=== PATIENT | female | born 1985 | race American Indian/Alaskan Native ===

== ENCOUNTER 2018-06-15 23:03 | Inpatient (IN) | payer MEDICAID ==
[~2018-06-15] VITALS: Ht 170.2 cm; Wt 60.1 kg
[~2018-06-15 23:03] MED LIST: NOVLG SQ; ONDA4TAB6 PO; PANT-47 PO; PREN1TAB75 PO; SUCR1TAB PO
--- NOTE | 2018-06-15 23:05 | NUR ---
Jass liu in [facility] - 06/16/18 at 0600 by MAGGIE Levophed stopped.
[2018-06-15] MEDS ORDERED: normal saline 1000ML IV soln IVB ONE (23:30)
[2018-06-15] MEDS ORDERED: naloxone 2mg/2ml inj IV ONE (23:35)
--- NOTE | 2018-06-15 23:45 | NUR ---
white small crystal substance mixed with clearish moderate chunks in MAC make up contained found on pt. Security notified.
--- NOTE | 2018-06-15 23:48 | NUR ---
Positivie gag reflex as assessed by dr Jauregui bedside.
--- NOTE | 2018-06-15 23:48 | NUR ---
Verbal order from Dr Jauregui, administered an additional 0.4mg Narcan now.
--- NOTE | 2018-06-15 23:56 | NUR ---
Per [facility] Poison control: a) continue to push fluids as EDMD ordered; b) Labs: CMP, ASA, Ibuprofen, & ABG - if ASA >30, administered 3ampules HCO3 in 1L d5 w/ 20mEq Potassium; monitor for respiratory alkalosis and metabolic acidosis; c) monitor and manage airway as appropriate.
[2018-06-16] VITALS (8 sets, daily range): BP systolic 105–112; BP diastolic 58–73
[2018-06-16 00:02] LABS: BASOPHILS % (AUTO) 0.6 % (0-1); EOSINOPHILS % (AUTO) 0.5 % (0-6); HEMOGLOBIN 14.1 g/dl (12.0-16.0); LYMPHOCYTES # (AUTO) 1.8 X10'3 (1.1-4.8); LYMPHOCYTES % (AUTO) 38.3 % (21-51); MEAN CORPUSCULAR HEMOGLOBIN 29.6 PG (27.0-31.0); MEAN CORPUSCULAR HGB CONC 32.7 % (33.0-36.5); MEAN CORPUSCULAR VOLUME 90.5 FL (78-98); MEAN PLATELET VOLUME 8.8 FL (7.4-10.4); MONOCYTES # (AUTO) 0.4 X10'3 (0-0.9); MONOCYTES % (AUTO) 8.8 % (2-12); NEUTROPHILS # (AUTO) 2.4 X10'3 (1.8-7.7); NEUTROPHILS % (AUTO) 51.8 % (42-75); PLATELET COUNT 243 X10'3 (140-440); RED BLOOD COUNT 4.75 X10'6 (4.20-5.60); RED CELL DISTRIBUTION WIDTH 13.4 % (11.5-14.5); WHITE BLOOD COUNT 4.6 X10'3 (4.5-11.0)
--- NOTE | 2018-06-16 00:02 | NUR ---
PT TOO SOMNOLENT OT PROVIDED MEDICAL HX. ALLERGY DATA PULLED FROM EXISTING PT RECORDS.
[2018-06-16 00:09] LABS: ALANINE AMINOTRANSFERASE 36 U/L (12-78); ALBUMIN 4.9 G/DL (3.4-5.0); ALBUMIN/GLOBULIN RATIO 1.9 (1.1-1.5); ALKALINE PHOSPHATASE 47 IU/L (46-116); ANION GAP 16 (8-16); ASPARTATE AMINO TRANSFERASE 30 U/L (10-37); BLOOD UREA NITROGEN 13 MG/DL (7-18); BUN/CREATININE RATIO 13.8 (6.6-38.0); CHLORIDE 102 MMOL/L (99-107); CREATININE 0.94 MG/DL (0.40-0.90); GLUCOSE 88 MG/DL (70-104); POTASSIUM 3.8 MMOL/L (3.5-5.1); SODIUM 142 MMOL/L (135-145); TOTAL CARBON DIOXIDE 23.9 MMOL/L (24-32); TOTAL PROTEIN 7.5 G/DL (6.4-8.2); eGFR 70 ML/MIN
[2018-06-16 00:15] LABS: ETHANOL < 0.010 GM/DL (0.0-0.010)
--- NOTE | 2018-06-16 00:15 | NUR ---
WHILE DRAWING ABG PT BEGAN TO THRASH ARMS AND LEGS. PT DOES NOT ANSWER OR RESPOND TO VERBAL ORDERS. BREATHING AND AIRWAY CLEAR. SOFT RESTRAINTS APPLIED TO BL UE AND BL LE. CSM IN ALL LIMBS INTACT. ABG DRAWN BY RESPIRATORY WITH STAFF HOLDING PT STILL FOR SAFE DRAW. IV IN RT AC SECURED WITH COBAN. UNABLE TO REORIENT PT. SECURITY PROVIDED ASSISTANCE WITH POSITIONING.
[2018-06-16 00:19] LABS: ACETAMINOPHEN 53.8 UG/ML (10-30)
[2018-06-16 00:24] LABS: PROTHROMBIN TIME 10.6 SECONDS (9.0-12.0)
[2018-06-16 00:26] LABS: ABG BASE EXCESS -8.2 mmol/L (-2.0-3.0); ABG HCO3 15.9 mmol/L (22.0-26.0); ABG OXYGEN SATURATION 97.8 % (95-98); ABG PH (T) 7.367 (7.350-7.450); ABG PO2 (T) 112.6 mmHg (83-108); ALLEN'S TEST Positive; FCOHb 1.3 % (0.5-1.5); FMetHb 0.3 % (0.3-1.12); FO2Hb 96.2 % (94-100); PATIENT TEMPERATURE 36.3; TOTAL HEMOGLOBIN 13.5 G/dl (12.0-16.0)
[2018-06-16 00:29] LABS: HCG SERUM QL NEGATIVE
--- NOTE | 2018-06-16 00:34 | NUR ---
pratik Jett #[id number] BEDSIDE R/T WHITE SUBSTANCE FOUND ON PT. SUBSTANCE TAKEN INTO POSSESSION BY PRATIK JETT. [facility] SECURITY PROVIDED NECESSARY DOCUMENTATION REFLECTING TRANSFER OF UNKNOWN SUBSTANCE.
[2018-06-16] MEDS ORDERED: POTASSIUM CL IV SCH (00:50)
[2018-06-16] MEDS ORDERED: [UNRECOGNIZED DRUG - OTHER] IV SCH (00:50)
[2018-06-16] MEDS ORDERED: SODIUM BICARBONATE IV SCH (00:50)
--- NOTE | 2018-06-16 01:29 | NUR ---
right foot released from soft restraint. Initial attempt ~ 10 minutes prior to release leg restrains were unsuccessful. Pt appears to be responding to sound of crying currently in ED.
--- NOTE | 2018-06-16 01:55 | NUR ---
Discussed decreased BP with Dr Jauregui; new orders recieved for NS bolus.
[2018-06-16] MEDS ORDERED: normal saline 1000ml 1,000 ML IV ONE (02:00)
[2018-06-16] MEDS: K, MAG and/or Phos replacement - Verify level? MC SCH ×2 (02:25→08:00)
[2018-06-16] MEDS ORDERED: magnesium hydroxide 30ml (MOM) UD suspension PO PRN (02:25)
[2018-06-16] MEDS ORDERED: acetaminophen 325mg tablet PO PRN ×2 (02:25)
[2018-06-16] MEDS ORDERED: ondansetron/PF 4mg/2ml inj IV PRN (02:25)
[2018-06-16] MEDS ORDERED: potassium Cl 40MEQ/NS 500ml 500 ML IV PRN ×2 (02:25)
[2018-06-16] MEDS ORDERED: potassium Cl 20 mEq SR tablet PO PRN (02:25)
[2018-06-16] MEDS ORDERED: WATER IV ONE ×5 (02:35→13:00)
[2018-06-16] MEDS ORDERED: ACETYLCYSTEINE IV ONE ×5 (02:35→13:00)
[2018-06-16] MEDS ORDERED: DEXTROSE 5% IV ONE ×5 (02:35→13:00)
[2018-06-16] MEDS: sodium bicarbonate (8.4%) inj. 75 MEQ in sodium chloride 0.45% 1,025 ML IV SCH ×2 (03:39→11:23)
[2018-06-16 03:49] LABS: URINE AMPHETAMINE SCREEN POSITIVE (Neg); URINE BARBITUATE SCREEN NEGATIVE (Neg); URINE BENZODIAZEPINES SCREEN NEGATIVE (Neg); URINE CANNABINOID SCREEN NEGATIVE (Neg); URINE COCAINE SCREEN NEGATIVE (Neg); URINE METHADONE SCREEN NEGATIVE (Neg); URINE OPIATE SCREEN NEGATIVE (Neg); URINE PHENCYCLIDINE SCREEN NEGATIVE (Neg)
--- NOTE | 2018-06-16 05:35 | NUR ---
Complete linen and gown change d/t pt emesis, w, Maryann Rn assist. Bear Huggar removed.
--- NOTE | 2018-06-16 06:31 | NUR ---
VVS. bedside report recieved from Halle
[2018-06-16 09:28] LABS: ACETAMINOPHEN 31.2 UG/ML (10-30); ALANINE AMINOTRANSFERASE 34 U/L (12-78); ALBUMIN 3.7 G/DL (3.4-5.0); ALBUMIN/GLOBULIN RATIO 1.4 (1.1-1.5); ALKALINE PHOSPHATASE 39 IU/L (46-116); ANION GAP 17 (8-16); ASPARTATE AMINO TRANSFERASE 28 U/L (10-37); BILIRUBIN,TOTAL 1.1 MG/DL (0.1-1.0); BLOOD UREA NITROGEN 12 MG/DL (7-18); BUN/CREATININE RATIO 13.6 (6.6-38.0); CALCIUM 8.2 MG/DL (8.5-10.1); CHLORIDE 107 MMOL/L (99-107); CREATININE 0.88 MG/DL (0.40-0.90); GLUCOSE 173 MG/DL (70-104); POTASSIUM 3.6 MMOL/L (3.5-5.1); SODIUM 143 MMOL/L (135-145); TOTAL CARBON DIOXIDE 18.8 MMOL/L (24-32); TOTAL PROTEIN 6.3 G/DL (6.4-8.2); eGFR 75 ML/MIN
[2018-06-16] MEDS: enoxaparin 40mg/0.4ml syringe SUBCUT SCH (10:27)
[2018-06-16] MEDS: pantoprazole 40 MG vial IV SCH (10:27)
[2018-06-16] MEDS ORDERED: acetylcysteine IV (Acetadote) 0 MG in dextrose 5%-water 1,000 ML IV ONE (11:35)
--- NOTE | 2018-06-16 12:29 | NUR ---
Pt's mental state continued to be altered and therefore, SS unable to complete psychosocial at this time. SS will try again tomorrow.
[2018-06-16 14:25] LABS: ACETAMINOPHEN 18.8 UG/ML (10-30); ALANINE AMINOTRANSFERASE 38 U/L (12-78); ALBUMIN 3.6 G/DL (3.4-5.0); ALBUMIN/GLOBULIN RATIO 1.4 (1.1-1.5); ALKALINE PHOSPHATASE 39 IU/L (46-116); ANION GAP 15 (8-16); ASPARTATE AMINO TRANSFERASE 24 U/L (10-37); BLOOD UREA NITROGEN 12 MG/DL (7-18); BUN/CREATININE RATIO 14.1 (6.6-38.0); CHLORIDE 106 MMOL/L (99-107); CREATININE 0.85 MG/DL (0.40-0.90); GLUCOSE 120 MG/DL (70-104); POTASSIUM 3.3 MMOL/L (3.5-5.1); SODIUM 142 MMOL/L (135-145); TOTAL CARBON DIOXIDE 20.6 MMOL/L (24-32); TOTAL PROTEIN 6.2 G/DL (6.4-8.2); eGFR 79 ML/MIN
--- NOTE | 2018-06-16 16:44 | NUR ---
Pt. was awake when she arrived to unit but quickly went to sleep. RN attemtped to obtain current med. rec. as Insulin is listed on med. rec. but it was not known that pt. is diabetic. Pt. did not respond to verbal stimuli. Will have to do med. rec. and admission charting when pt. is awake. VSS.
--- NOTE | 2018-06-16 17:27 | NUR ---
RN entered pt's room to apply SCDs when pt. sat up in bed and very rudely demanded water. RN reminded pt. that she has a NPO order and asked that she please not be rude. Pt. lied back down in bed and started to snore.
--- NOTE | 2018-06-16 18:17 | NUR ---
Problems reprioritized. Patient report given, questions answered & plan of care reviewed with Bridger DUMONT. Addendum: 06/16/18 at 1818 by Cinthia Longoria RN Amended: Links added.
--- NOTE | 2018-06-16 18:22 | NUR ---
Patient in room ICU 2046. I have received report from TIM Vicente and had the opportunity to ask questions and assume patient care. Patient is in bed and appears to be sleeping.
--- NOTE | 2018-06-16 23:00 | NUR ---
Poison control called and wanted an update on the patient. Based on the patient's previous labs, they wanted a redraw of her salicylates, acetaminophen, and AST/ALT levels now and to call back results if possible before midnight. They further instructed to repeat acetaminophen levels every 4 hours until the next 2 draws are decreasing. Furthermore, they said that if acetaminophen levels are > 10 and/or ASL/ALT levels have increased since the previous draw that it was recommended to restart the acetylcysteine drip. I have called Nadya Araujo NP and she has approved these recommendations as orders.
--- NOTE | 2018-06-16 23:20 | NUR ---
Problems reprioritized. Patient report given, questions answered & plan of care reviewed with TIM Chavarria (PCU). Patient will be transferred to PCU.
[2018-06-16 23:38] LABS: ACETAMINOPHEN 6.9 UG/ML (10-30)
--- NOTE | 2018-06-16 23:55 | NUR ---
Patient transferred to PCU in wheelchair accompanied by TIM Sparks. Tele monitor #55 attached to patient. Patient alert, comfortable. Personal belongings all brought with patient.
--- NOTE | 2018-06-16 23:59 | NUR ---
Patient arrived on floor via wheelchair after receiving report from Bridger DUMONT. Vitals taken, patient on air sampling and monitoring 55, oriented to room, sitter at bedside, belongings accompanied
[2018-06-17 00:15] VITALS: BP 94/58
--- NOTE | 2018-06-17 01:00 | NUR ---
Poison control called to follow up on lab results. Recommended to draw Chem7, Aspirin, Tylenol and liver panel at 0300 06/17, and if values continue to decrease and/or remain stable then serial labs are not longer required Addendum: 06/17/18 at 0147 by Aura Brandt RN Discussed with Nadya Araujo NP, recommendations implemented labs ordered accordingly
[2018-06-17 02:00] VITALS: BP 91/62
[2018-06-17 03:00] VITALS: BP 91/62
[2018-06-17 03:15] LABS: BASOPHILS % (AUTO) 0.6 % (0-1); EOSINOPHILS # (AUTO) 0.1 X10'3 (0-0.9); HEMATOCRIT 38.7 % (35.0-45.0); HEMOGLOBIN 12.6 g/dl (12.0-16.0); LYMPHOCYTES # (AUTO) 1.7 X10'3 (1.1-4.8); LYMPHOCYTES % (AUTO) 26.8 % (21-51); MEAN CORPUSCULAR HEMOGLOBIN 29.5 PG (27.0-31.0); MEAN CORPUSCULAR HGB CONC 32.5 % (33.0-36.5); MEAN CORPUSCULAR VOLUME 90.8 FL (78-98); MEAN PLATELET VOLUME 8.7 FL (7.4-10.4); MONOCYTES # (AUTO) 0.4 X10'3 (0-0.9); MONOCYTES % (AUTO) 5.9 % (2-12); NEUTROPHILS # (AUTO) 4.2 X10'3 (1.8-7.7); NEUTROPHILS % (AUTO) 65.7 % (42-75); PLATELET COUNT 218 X10'3 (140-440); RED BLOOD COUNT 4.26 X10'6 (4.20-5.60); RED CELL DISTRIBUTION WIDTH 13.8 % (11.5-14.5); WHITE BLOOD COUNT 6.4 X10'3 (4.5-11.0)
[2018-06-17 03:26] LABS: ACETAMINOPHEN 6.7 UG/ML (10-30); ALANINE AMINOTRANSFERASE 34 U/L (12-78); ALBUMIN 3.2 G/DL (3.4-5.0); ALBUMIN/GLOBULIN RATIO 1.2 (1.1-1.5); ALKALINE PHOSPHATASE 36 IU/L (46-116); ANION GAP 11 (8-16); ASPARTATE AMINO TRANSFERASE 17 U/L (10-37); BILIRUBIN,TOTAL 0.6 MG/DL (0.1-1.0); BLOOD UREA NITROGEN 19 MG/DL (7-18); BUN/CREATININE RATIO 15.3 (6.6-38.0); CALCIUM 8.1 MG/DL (8.5-10.1); CHLORIDE 106 MMOL/L (99-107); CREATININE 1.24 MG/DL (0.40-0.90); GLUCOSE 100 MG/DL (70-104); INR 1.2 INR; PROTHROMBIN TIME 11.7 SECONDS (9.0-12.0); SODIUM 142 MMOL/L (135-145); TOTAL CARBON DIOXIDE 25.3 MMOL/L (24-32); TOTAL PROTEIN 5.8 G/DL (6.4-8.2); eGFR 51 ML/MIN
[2018-06-17] MEDS: potassium Cl 20 mEq SR tablet PO PRN ×3 (03:33→13:37)
[2018-06-17 06:00] VITALS: BP 115/72
--- NOTE | 2018-06-17 06:35 | NUR ---
Problems reprioritized. Patient report given, questions answered & plan of care reviewed with Moi RN.
--- NOTE | 2018-06-17 06:37 | NUR ---
Patient in room PCU 3016. I have received report from juliet trent and had the opportunity to ask questions and assume patient care.
[2018-06-17] MEDS: enoxaparin 40mg/0.4ml syringe SUBCUT SCH (07:58)
[2018-06-17] MEDS: pantoprazole 40 MG vial IV SCH (07:58)
[2018-06-17] MEDS: K, MAG and/or Phos replacement - Verify level? MC SCH (08:00)
[2018-06-17] MEDS ORDERED: normal saline 1000ml 1,000 ML IVB ONE (09:22)
--- NOTE | 2018-06-17 09:22 | NUR ---
DR. CHENG NOTIFIED OF K+ 3.0, B/C 21/06., GFR 51. STATES "I WILL PUT ORDERS IN FOR IV FLUID AND REPEAT CHEMISTRIES".
[2018-06-17] MEDS: normal saline 1000ml 1,000 ML IV SCH ×2 (10:44→16:02)
[2018-06-17 11:00] VITALS: BP 96/55
[2018-06-17 11:31] LABS: ACETAMINOPHEN 5.2 UG/ML (10-30); ALBUMIN 2.8 G/DL (3.4-5.0); ANION GAP 8 (8-16); BLOOD UREA NITROGEN 16 MG/DL (7-18); BUN/CREATININE RATIO 16.5 (6.6-38.0); CALCIUM 7.7 MG/DL (8.5-10.1); CHLORIDE 110 MMOL/L (99-107); CREATININE 0.97 MG/DL (0.40-0.90); GLUCOSE 122 MG/DL (70-104); PHOSPHORUS 1.6 MG/DL (2.3-4.5); POTASSIUM 3.6 MMOL/L (3.5-5.1); SODIUM 142 MMOL/L (135-145); TOTAL CARBON DIOXIDE 23.8 MMOL/L (24-32); eGFR 67 ML/MIN
--- NOTE | 2018-06-17 11:34 | NUR ---
SS met with pt @ her bedside and engaged her in completing the [place] Suicide Severity Rating Scale (C-SSRS) & the PHQ-9 to assess pt's risk of suicide and presence of depressive sxs. C-SSRS Assessment: Pt responded positively to questions about SI Pt responded positively to question about SI w/method Pt responded positively to question about Suicidal Intent Pt responded negatively to question about Suicidal Intent w/Specific Plan Pt also responded positively to question about Suicide Behavior and most recent behavior was w/in the last 2 days. PHQ-9 Assessment: Pt's score on the PHQ-9 is 22, indicating that pt currently endorses sxs/bxs/thoughts/mood that may meet DSM-5 diagnostic criteria for Major Depression-severe. During interview session, pt expressed "I just want to because my life is not worth living anymore", but did not provide any information re any recent stressors. SS contacted family member to gather additional information re recent/current life stressors, lifestyle changes & history of MH services/treatment. In addition, family member reports recent life stressors- loss of employment, substance use, and the involvement of Child Welfare services may have been contributing factors in pt's overdosing episode. Family member indicated that weeks prior to overdosing, family had noticed pt eating less using protein shakes more often, becoming more w/drawn (especially from her children-unusual for pt), more argumentative with family members, and "sneaky" using illicit drugs. Per family member, pt has struggled w/depression and sometimes seek services @ the [facility]. Summary: Per pt's responses on the C-SSRS, SS recommends Safety Monitoring including monitoring of pt's nutritional intake as pt was very guarded & evasive when asked about any changes in her appetite over the past 2 weeks and family indicated noticeable weight loss in the weeks prior to hospitalization. In addition, the C-SSRS suggests that pt continues to endorse thoughts & bxs that elevates risks of suicide therefore, a referral for psychiatric consult/5150 eval is also recommended. SS met w/pt's attending RN, informed him of findings from the PHQ-9 & C-SSRS. Discussing interventions needed- safety monitoring, including nutritional intake & referral for emergent MH consultation/5150 eval when medically stable for discharge. Plan: SS will continue to monitor & provide linkages to [facility] for 5150 eval as part of dcp.
[2018-06-17 14:19] LABS: COLOR,URINE YELLOW (Yellow); GLUCOSE, URINE NEGATIVE (Neg); KETONES,URINE NEGATIVE (Neg); LEUKOCYTE ESTERASE ,URINE MODERATE (Neg); NITRITES, URINE NEGATIVE (Neg); OCCULT BLOOD,URINE NEGATIVE (Neg); PROTEIN,URINE NEGATIVE (Neg); UROBILINOGEN,URINE 0.2 E.U/dL (0.2-1.0)
[2018-06-17 14:23] LABS: UA COLLECTION TYPE VOIDED
[2018-06-17 14:24] LABS: CLARITY,URINE SLIGHTLY CLOUDY (Clear)
[2018-06-17 14:25] LABS: WBC,URINE 50-100 /HPF (0-4)
[2018-06-17 14:26] LABS: BACTERIA,URINE 4+ /HPF (Neg); RBC,URINE 0-2 /HPF (0-2); SQUAMOUS EPITHELIAL CELL,UR MODERATE /LPF (FEW)
[2018-06-17 14:47] LABS: UA EOSINOPHILS FEW EOS /HPF
[2018-06-17 15:00] VITALS: BP 115/78
--- NOTE | 2018-06-17 18:30 | NUR ---
Problems reprioritized. Patient report given, questions answered & plan of care reviewed with Moi RN. Patient resting comfortably at this time, sitter in room, patient not in restraints. Patient's mother is at bedside
--- NOTE | 2018-06-17 18:47 | NUR ---
Problems reprioritized. Patient report given, questions answered & plan of care reviewed with TIM CONNOLLY.
[2018-06-18] MEDS ORDERED: NO HOME MEDS (00:31)
[2018-06-18] MEDS ORDERED: bisacodyl 10mg suppository rectal RC PRN (02:25)
[2018-06-18] MEDS ORDERED: pantoprazole 40mg Tablet.DR PO SCH (07:30)
--- NOTE | 2018-06-18 09:12 | NUR ---
Pt's d/c'd to [facility] via a 5150 provided by [facility]. SS referral closed.
== END 2018-06-17 22:42 | DRG 817 ==
LOC: ER 23:03 → ED HOLD 06-16 02:22 → ICU 2S 06-16 15:41 → PCU 3S 06-16 23:55
PROVIDERS: ADMIT Internal Medicine Critical Care Medicine; ATTEND Internal Medicine Critical Care Medicine
DX: T39.1X2A Poisoning by 4-Aminophenol derivatives, intentional self-harm, initial encounter (principal); E11.65 Type 2 diabetes mellitus with hyperglycemia; M79.7 Fibromyalgia; T39.012A Poisoning by aspirin, intentional self-harm, initial encounter; F17.200 Nicotine dependence, unspecified, uncomplicated; F15.90 Other stimulant use, unspecified, uncomplicated; R00.0 Tachycardia, unspecified; F32.9 Major depressive disorder, single episode, unspecified; T39.312A Poisoning by propionic acid derivatives, intentional self-harm, initial encounter; Y92.89 Other specified places as the place of occurrence of the external cause; Z87.442 Personal history of urinary calculi; Z91.5 Personal history of self-harm; Z59.0 Homelessness; Z79.899 Other long term (current) drug therapy; Z79.4 Long term (current) use of insulin
CPT/HCPCS: 36415; 36600; 71045; 80053; 80069; 80305; 80320; 80329; 81001; 82570; 82803; 82948; 83735; 84100; 84300; 84450; 84460; 84703; 85018; 85025; 85576; 85610; 87207; 93005; 96361; 96374; 96375; 99291; C9113; G0378; J0132; J1650; J2310; J3480; J7030; J7060; J7070

== ENCOUNTER 2018-06-17 21:35 | Inpatient (IN) | payer MEDICAID | END 2018-06-24 15:13 | disposition still patient (30) | LOC: ADULT MH 21:35 | DX: R45.851 Suicidal ideations (principal); F32.9 Major depressive disorder, single episode, unspecified ==

== ENCOUNTER 2018-07-04 22:12 | Emergency (ER) | payer MEDICAID ==
[~2018-07-04] VITALS: Ht 160 cm; Wt 60.0 kg
[~2018-07-04 22:12] MED LIST changes: +BUPR-84 PO; +HYDR-3686 PO; -NOVLG SQ; -ONDA4TAB6 PO; -PANT-47 PO; -PREN1TAB75 PO; -SUCR1TAB PO; +TRAZ-218 PO
[2018-07-04 22:17] VITALS: BP 132/74
[2018-07-04 22:30] LABS: BASOPHILS % (AUTO) 0.3 % (0-1); EOSINOPHILS # (AUTO) 0.2 X10'3 (0-0.9); HEMATOCRIT 36.5 % (35.0-45.0); HEMOGLOBIN 12.4 g/dl (12.0-16.0); LYMPHOCYTES # (AUTO) 1.1 X10'3 (1.1-4.8); MEAN CORPUSCULAR HEMOGLOBIN 30.4 PG (27.0-31.0); MEAN CORPUSCULAR HGB CONC 33.9 g/dL (33.0-36.5); MEAN CORPUSCULAR VOLUME 89.7 FL (78-98); MEAN PLATELET VOLUME 7.8 FL (7.4-10.4); MONOCYTES # (AUTO) 0.6 X10'3 (0-0.9); MONOCYTES % (AUTO) 5.2 % (2-12); NEUTROPHILS # (AUTO) 8.9 X10'3 (1.8-7.7); NEUTROPHILS % (AUTO) 82.5 % (42-75); PLATELET COUNT 238 X10'3 (140-440); RED BLOOD COUNT 4.07 X10'6 (4.20-5.60); RED CELL DISTRIBUTION WIDTH 13.9 % (11.5-14.5); WHITE BLOOD COUNT 10.8 X10'3 (4.5-11.0)
[2018-07-04 22:44] LABS: ALANINE AMINOTRANSFERASE 27 U/L (12-78); ALBUMIN 3.6 G/DL (3.4-5.0); ALKALINE PHOSPHATASE 58 IU/L (46-116); ANION GAP 7 (8-16); ASPARTATE AMINO TRANSFERASE 12 U/L (10-37); BILIRUBIN,TOTAL 0.5 MG/DL (0.1-1.0); BLOOD UREA NITROGEN 15 MG/DL (7-18); BUN/CREATININE RATIO 14.3 (6.6-38.0); CALCIUM 8.2 MG/DL (8.5-10.1); CHLORIDE 103 MMOL/L (99-107); CREATININE 1.05 MG/DL (0.40-0.90); GLUCOSE 112 MG/DL (70-104); POTASSIUM 4.1 MMOL/L (3.5-5.1); SODIUM 140 MMOL/L (135-145); TOTAL CARBON DIOXIDE 29.8 MMOL/L (24-32); TOTAL PROTEIN 7.2 G/DL (6.4-8.2); eGFR 62 ML/MIN
[2018-07-04 22:45] LABS: PARTIAL THROMBOPLASTIN TIME 28 SECONDS (22-32); PROTHROMBIN TIME 9.9 SECONDS (9.0-12.0)
[2018-07-04] MEDS ORDERED: acetaminophen 325mg tablet PO ONE (23:15)
--- NOTE | 2018-07-04 23:15 | NUR ---
PT AT WINDOW REQUESTING TO LEAVE. PULLED ASIDE AND SAW PT IN TRIAGE ROOM. ALL LABS ARE BACK. PT WILL BE MEDICATED. SHE IS PLACED IN T2 TO AWAIT MEDS AND THEN WILL BE D\C'D - NO RN AVAIL FOR CHARTING, NO ROOMS AVAILABLE
== END 2018-07-04 23:27 | disposition home or self-care (01) ==
LOC: ER 22:13
DX: R07.9 Chest pain, unspecified (principal); M54.5 Low back pain; M79.602 Pain in left arm; R10.9 Unspecified abdominal pain; F15.90 Other stimulant use, unspecified, uncomplicated; Z88.6 Allergy status to analgesic agent; Z79.899 Other long term (current) drug therapy; Z59.0 Homelessness; Z56.0 Unemployment, unspecified
CPT/HCPCS: 36415; 71045; 80053; 84484; 85025; 85610; 85730; 93005; 99284

== ENCOUNTER 2018-07-28 18:30 | Emergency (ER) | payer MEDICAID ==
[~2018-07-28] VITALS: Ht 160 cm; Wt 66.0 kg
[2018-07-28 18:36] VITALS: BP 106/67
[2018-07-28] MEDS ORDERED: PSEU-259 PO (19:38)
== END 2018-07-28 19:43 | disposition home or self-care (01) ==
LOC: ER 18:30
DX: R09.81 Nasal congestion (principal); R20.0 Anesthesia of skin; R51 Headache; F15.10 Other stimulant abuse, uncomplicated; Z56.0 Unemployment, unspecified; Z59.0 Homelessness; Z88.6 Allergy status to analgesic agent
CPT/HCPCS: 99282

== ENCOUNTER 2018-10-10 05:25 | Emergency (ER) | payer MEDICAID ==
[~2018-10-10] VITALS: Ht 167.6 cm; Wt 55.0 kg
[~2018-10-10 05:25] MED LIST changes: +PSEU-259 PO; -TRAZ-218 PO; +TRAZ-251 PO
[2018-10-10 05:31] VITALS: BP 123/79
[2018-10-10] MEDS ORDERED: proparacaine 0.5% ophthalmic drops 15ml EACHEYE ONE (05:40)
[2018-10-10] MEDS ORDERED: ibuprofen tablet 400 MG TABLET PO ONE (05:40)
[2018-10-10] MEDS: acetaminophen 325mg tablet PO ONE ×2 (05:45→05:50)
--- NOTE | 2018-10-10 05:46 | NUR ---
Slit lamp and burton lamp at bedside. pts at bedside. pt given tylenol and ibuprofen. reports some relief with alcaine.
[2018-10-10] MEDS ORDERED: ERYT1OIN6 EACHEYE (05:49)
[2018-10-10] MEDS ORDERED: erythromycin ophthalmic ointment 1gm tube RIGHTEYE ONE (05:50)
== END 2018-10-10 06:01 | disposition home or self-care (01) ==
LOC: ER 05:25
DX: S00.211A Abrasion of right eyelid and periocular area, initial encounter (principal); F15.90 Other stimulant use, unspecified, uncomplicated; Z56.0 Unemployment, unspecified; Z59.0 Homelessness; Z88.6 Allergy status to analgesic agent; W20.8XXA Other cause of strike by thrown, projected or falling object, initial encounter; Y93.89 Activity, other specified; Y92.89 Other specified places as the place of occurrence of the external cause; Y99.8 Other external cause status
CPT/HCPCS: 99283

== ENCOUNTER 2018-11-12 17:45 | Emergency (ER) | payer MEDICAID ==
[~2018-11-12] VITALS: Ht 160 cm; Wt 45.5 kg
[2018-11-12] MEDS ORDERED: normal saline 1000ML IV soln IVB ONE ×2 (17:55→22:20)
[2018-11-12] MEDS ORDERED: naloxone 2mg/2ml inj IV ONE (17:55)
--- NOTE | 2018-11-12 18:00 | NUR ---
Dr Jauregui in to re-assess patient at this time. UA obtained via straight cath, okay per Dr Jauregui.
--- NOTE | 2018-11-12 18:09 | NUR ---
POISON CONTROL CALLED FOR OVERDOSE OF TRAXODONE, RECOMMENDATIONS FOLLOWED: NARCAN FOR POSSIBLE OPIATE USE, OBSERVE FOR 4-6 HRS AFTER NARCAN MONITOR CARDIAC FOR PROLONGED QTC, IF PROLONGED ELECTROLIT MANAGEMENT TO KEEP K+>4, MAG>2, Ca>9 WATCH FOR BRADYCARDIA, HYPOTENSION, RBBB, T-WAVE CONVERSION, SEIZURES,; FREQUENT EKG UNTILSTABLE THEN Q4-6 HRS MONITOR TO BASELINE. LABS: CBC, CMP, ASA, TYLENOL LEVEL, UTOX, HCG, ETOH.
[2018-11-12 18:12] LABS: BASOPHILS % (AUTO) 0.4 % (0-1); EOSINOPHILS % (AUTO) 0.3 % (0-6); HEMATOCRIT 40.3 % (35.0-45.0); LYMPHOCYTES # (AUTO) 3.4 X10'3 (1.1-4.8); MEAN CORPUSCULAR HEMOGLOBIN 30.7 PG (27.0-31.0); MEAN CORPUSCULAR HGB CONC 34.7 g/dL (33.0-36.5); MEAN CORPUSCULAR VOLUME 88.3 FL (78-98); MEAN PLATELET VOLUME 7.6 FL (7.4-10.4); MONOCYTES # (AUTO) 0.4 X10'3 (0-0.9); MONOCYTES % (AUTO) 5.2 % (2-12); NEUTROPHILS # (AUTO) 4.5 X10'3 (1.8-7.7); NEUTROPHILS % (AUTO) 53.1 % (42-75); PLATELET COUNT 242 X10'3 (140-440); RED BLOOD COUNT 4.56 X10'6 (4.20-5.60); RED CELL DISTRIBUTION WIDTH 13.7 % (11.5-14.5); WHITE BLOOD COUNT 8.4 X10'3 (4.5-11.0)
[2018-11-12 18:22] LABS: CLARITY,URINE CLOUDY (Clear); COLOR,URINE YELLOW (Yellow); GLUCOSE, URINE NEGATIVE (Neg); KETONES,URINE NEGATIVE (Neg); LEUKOCYTE ESTERASE ,URINE TRACE (Neg); NITRITES, URINE POSITIVE (Neg); OCCULT BLOOD,URINE NEGATIVE (Neg); PROTEIN,URINE TRACE mg/dl (Neg); UROBILINOGEN,URINE 0.2 E.U/dL (0.2-1.0)
[2018-11-12 18:24] LABS: UA COLLECTION TYPE STRAIGHT CATH
[2018-11-12 18:25] LABS: PARTIAL THROMBOPLASTIN TIME 23 SECONDS (22-32)
[2018-11-12 18:28] LABS: WBC,URINE 30-50 /HPF (0-4)
[2018-11-12 18:29] LABS: BACTERIA,URINE 4+ /HPF (Neg); MUCUS STRANDS NONE SEEN /LPF (Neg); RBC,URINE 0-2 /HPF (0-2); SQUAMOUS EPITHELIAL CELL,UR MODERATE /LPF (FEW); WBC CLUMPS,URINE MODERATE /HPF (NEGATIVE)
[2018-11-12 18:34] LABS: HCG SERUM QL NEGATIVE
[2018-11-12 18:37] LABS: ALANINE AMINOTRANSFERASE 37 U/L (12-78); ALBUMIN 3.9 G/DL (3.4-5.0); ALBUMIN/GLOBULIN RATIO 1.1 (1.1-1.5); ALKALINE PHOSPHATASE 57 IU/L (46-116); ANION GAP 9 (8-16); ASPARTATE AMINO TRANSFERASE 22 U/L (10-37); BLOOD UREA NITROGEN 16 MG/DL (7-18); BUN/CREATININE RATIO 12.3 (6.6-38.0); CALCIUM 9.1 MG/DL (8.5-10.1); CHLORIDE 105 MMOL/L (99-107); ETHANOL < 0.010 GM/DL (0.0-0.010); GLUCOSE 106 MG/DL (70-104); PHOSPHORUS 4.6 MG/DL (2.3-4.5); POTASSIUM 3.7 MMOL/L (3.5-5.1); SODIUM 143 MMOL/L (135-145); TOTAL CARBON DIOXIDE 29.5 MMOL/L (24-32); TOTAL PROTEIN 7.4 G/DL (6.4-8.2); eGFR 48 ML/MIN
[2018-11-12 18:37] LABS: URINE AMPHETAMINE SCREEN POSITIVE (Neg); URINE BARBITUATE SCREEN NEGATIVE (Neg); URINE BENZODIAZEPINES SCREEN NEGATIVE (Neg); URINE CANNABINOID SCREEN NEGATIVE (Neg); URINE COCAINE SCREEN NEGATIVE (Neg); URINE METHADONE SCREEN NEGATIVE (Neg); URINE OPIATE SCREEN NEGATIVE (Neg); URINE PHENCYCLIDINE SCREEN NEGATIVE (Neg)
[2018-11-12 18:39] LABS: ACETAMINOPHEN < 2.0 UG/ML (10-30)
[2018-11-12] MEDS ORDERED: potassium Cl 10 mEq/100mL bag IV ONE (19:25)
[2018-11-13] MEDS ORDERED: CefTRIAXone/D5W-Rocephin 1gm 50 ML IV ONE (00:15)
[2018-11-13] MEDS ORDERED: normal saline 1000ML IV soln IVB ONE ×2 (00:15→05:20)
--- NOTE | 2018-11-13 05:00 | NUR ---
SPOKE WITH DR GALLARDO REGARDING PTS BLOOD PRESSURE DROPPING, PT CURRENTLY AT 82/36. PER DR GALLARDO REPEAT EKG, AMBULATE PT AND HAND ANOTHER NS BOLUS.
--- NOTE | 2018-11-13 06:30 | NUR ---
PT IS ASLEEP, AROUSABLE, NOT WANTING TO TALK
--- NOTE | 2018-11-13 07:15 | NUR ---
PT IS IN BED ON HER RIGHT SIDE, NO S/S OF DISTRESS OBSERVED
--- NOTE | 2018-11-13 08:15 | NUR ---
PT IS IN BED ON RIGHT SIDE, ASKED TO MOVE INTO SUPINE POSITION, SHE COMPLIED, RECHECK BP
--- NOTE | 2018-11-13 09:00 | NUR ---
PT IS IN BED ON LEFT SIDE, NO S/S OF DISTRESS OBSERVED
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
--- NOTE | 2018-11-13 10:00 | NUR ---
PT AWAKE, REQUESTED PHONE AND FOOD, OBTAINED ORDER GAVE HER SANDWICH, JUICE, YOGHURT
--- NOTE | 2018-11-13 11:32 | NUR ---
patient ate cody odom, 240 ml whole milk, bag of chips
--- NOTE | 2018-11-13 11:34 | NUR ---
I WALKED INTO ROOM AND SAID EDY TO THE PATIENT. i ASKED HER WHAT BROUGHT HER TO THE ER, SHE ASKED "ILL ONLY TALK TO YOU IF I AM AM GOING HOME TODAY" I HAD ALREADY TOLD HER THAT I WAS GOING TO BE HER NURSE AND I WAS TAKING OVER FROM HER NURSE MARITO. I TOLD HER THAT I AM NOT SURE IF OR WHEN SHE WAS GOING TO BE DISCHARGED I HAD NOT YET RECEIEVD REPORT. I ASKED HER TO PLEASE LOWER HER LEFT ARM SO I COULD RETAKE HER BLOOD PRESSURE, WHICH SHE DID. I ASKED HER AGAIN WHAT BROUGHT HER HERE, I WOULD LIKE TO HEAR IT IN HER OWN WORDS. PATIENT STATED THAT "YOU ARE RUDE. I ONLY WANTED TO SLEEP. I HAVE NOT SLEPT IN DAYS, SO I TOOK MY SLEEPING PILLS (TRAZADONE)." PATIENT ADMITS TO SNORTING AND INJECTING METHAMPHEATMINE. PATIENT IS AXOX4, AYERS.
--- NOTE | 2018-11-13 11:50 | NUR ---
NOTED THAT PATIENT HAS AN ORDER FOR A 1799. [facility] ASKED TO REMOVE ALL PATIENT BELONGINGS, INCLUDING ALL THE JEWELRY PATIETN IS WEARING WELL CLEAR THE ROOM OF MEDICAL SUPPLIES. PATIENT NOW SCREAMING OUT AND UNCOOPERATIVE, SECURITY AT BEDSIDE PACKET NOT SENT TO MENTAL HEALTH PATIENT WAS NOT MEDICALLY CLEARED
--- NOTE | 2018-11-13 12:16 | NUR ---
PATIENT WAS MEDICALLY CLEARED AT 2200 11/13/18. [employer] TO FAX MENTAL HEALTH PACKET. PATIENT IS NOW IN GREEN SCRUBS AND TECHS REMOVED ALL PERSONAL BELONGINGS AND LOCKED THEM UP
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
--- NOTE | 2018-11-13 13:10 | NUR ---
pt is sitting up in bed, eating, she just requested and was given a blanket, she is calm no s/s of distress observed
[2018-11-13] MEDS ORDERED: ondansetron/PF 4mg/2ml inj IV ONE (13:45)
--- NOTE | 2018-11-13 14:58 | NUR ---
Patient moved from bed 10 to bed 20 by Charge Nurse, Fabian. No distress noted at this time.
--- NOTE | 2018-11-13 15:05 | NUR ---
Patient started crying and wanting to go home. Patient states she needs her to come hold her. Patient's does not have a working phone and is staying with his friend. His friend's phone is not working either. RN asked Dr Jauregui for something for anxiety, but patient refused and doesn't want any medication. Patient continued to cry until RN gave her food, then patient fell asleep.
--- NOTE | 2018-11-13 17:12 | NUR ---
Patient awoken for vital signs. Patient started to cry softly. Continue to monitor.
--- NOTE | 2018-11-13 18:56 | NUR ---
recvd report from Ivis DUMONT, assumed care of pt. Pt sitting in bed crying. States she is here becuase she took too many sleeping pills because she hadnt slept for a while and wanted to go to sleep. Asked pt if less pills would have worked for sleeping and pt became agitated and states she felt anxious so she took more. Pt reports having been to [facility] before and states she doesn't want to go back. Pt continues crying states she doesnt know why her boyfriend has not come to see her. Pt reports good appetite, asking for dinner tray. Kitchen has been notified. Pt requested and was provided w/blankets and is currently laying on her back resting w/her eyes closed rr even and unlabored.
[2018-11-13] MEDS ORDERED: LORazepam 1 MG tablet PO PRN (22:50)
--- NOTE | 2018-11-13 23:22 | NUR ---
Pt met w/[facility] and was placed on 5150 for dts.
--- NOTE | 2018-11-13 23:22 | NUR ---
Pt laying on right side, sleeping, rr even and unlabored no s/s distress.
--- NOTE | 2018-11-14 01:46 | NUR ---
pt is sleeping rr even and unlabored no s/s of distress
--- NOTE | 2018-11-14 05:43 | NUR ---
Pt laying on her back asleep rr even and unlabored no s/s distress.
--- NOTE | 2018-11-14 05:44 | NUR ---
rcvd call from [facility] requesting tsh, they wont be able to present pt to the provider until this morning and will notify [facility] office if they can accept.
--- NOTE | 2018-11-14 06:22 | NUR ---
Received report from Ewa DUMONT.
[2018-11-14] MEDS ORDERED: CefTRIAXone 1000mg IM Kit (w/lidocaine diluent) IM ONE (10:50)
[2018-11-14 11:45] LABS: BASOPHILS % (AUTO) 0.6 % (0-1); EOSINOPHILS % (AUTO) 0.7 % (0-6); HEMATOCRIT 36.3 % (35.0-45.0); HEMOGLOBIN 12.1 g/dl (12.0-16.0); LYMPHOCYTES # (AUTO) 1.5 X10'3 (1.1-4.8); LYMPHOCYTES % (AUTO) 29.7 % (21-51); MEAN CORPUSCULAR HEMOGLOBIN 30.1 PG (27.0-31.0); MEAN CORPUSCULAR HGB CONC 33.3 g/dL (33.0-36.5); MEAN CORPUSCULAR VOLUME 90.2 FL (78-98); MEAN PLATELET VOLUME 7.7 FL (7.4-10.4); MONOCYTES # (AUTO) 0.3 X10'3 (0-0.9); MONOCYTES % (AUTO) 5.6 % (2-12); NEUTROPHILS # (AUTO) 3.2 X10'3 (1.8-7.7); NEUTROPHILS % (AUTO) 63.4 % (42-75); PLATELET COUNT 186 X10'3 (140-440); RED BLOOD COUNT 4.02 X10'6 (4.20-5.60); RED CELL DISTRIBUTION WIDTH 13.3 % (11.5-14.5)
[2018-11-14 12:01] LABS: ALANINE AMINOTRANSFERASE 27 U/L (12-78); ALBUMIN 2.8 G/DL (3.4-5.0); ALBUMIN/GLOBULIN RATIO 0.9 (1.1-1.5); ALKALINE PHOSPHATASE 44 IU/L (46-116); ANION GAP 3 (8-16); ASPARTATE AMINO TRANSFERASE 14 U/L (10-37); BILIRUBIN,TOTAL 0.1 MG/DL (0.1-1.0); BLOOD UREA NITROGEN 13 MG/DL (7-18); BUN/CREATININE RATIO 15.3 (6.6-38.0); CHLORIDE 107 MMOL/L (99-107); CREATININE 0.85 MG/DL (0.40-0.90); GLUCOSE 97 MG/DL (70-104); POTASSIUM 4.9 MMOL/L (3.5-5.1); SODIUM 140 MMOL/L (135-145); TOTAL CARBON DIOXIDE 30.4 MMOL/L (24-32); TOTAL PROTEIN 5.8 G/DL (6.4-8.2); eGFR 78 ML/MIN
--- NOTE | 2018-11-14 15:04 | NUR ---
Received phone call from [facility] office, stating [facility] in [place] has accepted pt with Dr. Knowles and their otr truck driver will be here to machine operator hop picker patient at 1930 today.
[2018-11-14 17:25] VITALS: BP 99/60
--- NOTE | 2018-11-14 18:23 | NUR ---
Rcvd report from Avani DUMONT assumed care, Pt is sleeping in bed, her boyfriend is sitting in a chair at bedside.
--- NOTE | 2018-11-14 19:16 | NUR ---
pt awake, ambulating to restroom, states "Im fine."
--- NOTE | 2018-11-14 19:36 | NUR ---
Consulting Property Manager here from [facility] to transport pt to [facility].
--- NOTE | 2018-11-15 10:06 | NUR ---
Unrie Culture received. Dr. Mckenzie wanted to perscribe Keflex 500 mg PO QID x 5 days. Called [facility] [place]. Pt is still there. Faxed them results. They will have their provider look at results.
== END 2018-11-14 19:43 ==
LOC: ER 17:45
DX: T43.212A Poisoning by selective serotonin and norepinephrine reuptake inhibitors, intentional self-harm, initial encounter (principal); F32.9 Major depressive disorder, single episode, unspecified; F15.90 Other stimulant use, unspecified, uncomplicated; F17.200 Nicotine dependence, unspecified, uncomplicated; Z59.0 Homelessness; Z56.0 Unemployment, unspecified; Z88.6 Allergy status to analgesic agent; Z79.899 Other long term (current) drug therapy; Y92.89 Other specified places as the place of occurrence of the external cause
CPT/HCPCS: 36415; 71045; 80053; 80305; 80320; 80329; 81001; 83735; 84100; 84443; 84484; 84703; 85025; 85610; 85730; 87077; 87088; 87186; 93005; 96365; 96372; 96375; 99285; J0696; J2310; J2405; J3480; J7030

== ENCOUNTER 2019-02-13 11:05 | Emergency (ER) | payer MEDICAID ==
[~2019-02-13] VITALS: Ht 160 cm; Wt 56.8 kg
--- NOTE | 2019-02-13 12:48 | NUR ---
ACCOMPANIED NIKOLAI COUGHLIN FOR VAGINAL EXAM, WET MOUNT COLLECTED
[2019-02-13] MEDS ORDERED: CefTRIAXone 250MG IM Kit w/LIDOcaine IM ONE (12:50)
[2019-02-13] MEDS ORDERED: azithromycin 250mg tablet PO ONE (12:50)
[2019-02-13] MEDS ORDERED: metroNIDAZOLE 500mg tablet PO ONE (12:50)
[2019-02-13 13:49] LABS: CLARITY,URINE TURBID (Clear); COLOR,URINE STRAW (Yellow); GLUCOSE, URINE NEGATIVE (Neg); KETONES,URINE NEGATIVE (Neg); LEUKOCYTE ESTERASE ,URINE LARGE (Neg); NITRITES, URINE NEGATIVE (Neg); OCCULT BLOOD,URINE MODERATE (Neg); PH,URINE 7.5 (4.8-8.0); PROTEIN,URINE TRACE mg/dl (Neg)
[2019-02-13 13:52] LABS: UA COLLECTION TYPE CLN CATCH MIDSTREAM
[2019-02-13 14:01] LABS: AMORPHOUS PHOSPHATES 3+; BACTERIA,URINE 3+ /HPF (Neg); MUCUS STRANDS FEW /LPF (Neg); RENAL CELLS, URINE MODERATE /HPF; SQUAMOUS EPITHELIAL CELL,UR MANY /LPF (FEW); WBC CLUMPS,URINE MODERATE /HPF (NEGATIVE); WBC,URINE TNTC /HPF (0-4)
[2019-02-13 14:14] VITALS: BP 125/76
--- NOTE | 2019-02-13 14:19 | NUR ---
PATIENT PROVIDED NEW SHOES
== END 2019-02-13 14:10 | disposition home or self-care (01) ==
LOC: ER 11:06
DX: A64 Unspecified sexually transmitted disease (principal); F19.10 Other psychoactive substance abuse, uncomplicated; F15.90 Other stimulant use, unspecified, uncomplicated; M79.7 Fibromyalgia; Z59.0 Homelessness; Z56.0 Unemployment, unspecified; Z87.442 Personal history of urinary calculi; Z88.6 Allergy status to analgesic agent; Z79.899 Other long term (current) drug therapy
CPT/HCPCS: 36415; 81001; 87210; 87491; 87591; 96372; 99283; J0696; Q0112; J3490

== ENCOUNTER 2019-02-23 03:03 | Emergency (ER) | payer MEDICAID ==
[~2019-02-23] VITALS: Ht 160 cm; Wt 54.5 kg
[2019-02-23 03:05] VITALS: BP 140/91
[2019-02-23] MEDS ORDERED: ketorolac trometh inj. 60 MG/2 ML VIAL IM ONE (03:50)
== END 2019-02-23 04:12 | disposition home or self-care (01) ==
LOC: ER 03:03
DX: M77.9 Enthesopathy, unspecified (principal); M79.7 Fibromyalgia; F32.9 Major depressive disorder, single episode, unspecified; F15.90 Other stimulant use, unspecified, uncomplicated; F10.99 Alcohol use, unspecified with unspecified alcohol-induced disorder; Z87.442 Personal history of urinary calculi; Z56.0 Unemployment, unspecified; Z59.0 Homelessness; Z88.6 Allergy status to analgesic agent; Z79.899 Other long term (current) drug therapy; Y90.9 Presence of alcohol in blood, level not specified
CPT/HCPCS: 96372; 99283; J1885

== ENCOUNTER 2019-04-18 20:33 | Emergency (ER) | payer MEDICAID ==
[~2019-04-18] VITALS: Ht 160 cm; Wt 56.8 kg
--- NOTE | 2019-04-18 21:15 | NUR ---
PT. REQUESTING: A SANDWICH, IV FLUIDS, AND MILK TO WASH THE BEAR SPRAY OFF BODY
[2019-04-18] MEDS ORDERED: LIDOcaine 1% W/epiNEPHrine 1:100,000 20ml vial SQ ONE (21:25)
--- NOTE | 2019-04-18 21:33 | NUR ---
PT GIVEN A SANDWICH AND MILK
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
[2019-04-18] MEDS ORDERED: HYDROcodone/acetaminophen 10/325mg tab PO ONE (22:05)
[2019-04-18 22:27] VITALS: BP 130/66
[2019-04-18] MEDS ORDERED: HYDR-4353 PO (23:09)
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
== END 2019-04-18 23:41 | disposition home or self-care (01) ==
LOC: ER 20:34
DX: S01.01XA Laceration without foreign body of scalp, initial encounter (principal); T20.50XA Corrosion of first degree of head, face, and neck, unspecified site, initial encounter; T22.511A Corrosion of first degree of right forearm, initial encounter; T22.512A Corrosion of first degree of left forearm, initial encounter; M79.7 Fibromyalgia; F15.90 Other stimulant use, unspecified, uncomplicated; Z59.0 Homelessness; Z56.0 Unemployment, unspecified; Z88.6 Allergy status to analgesic agent; Y04.0XXA Assault by unarmed brawl or fight, initial encounter; Y93.89 Activity, other specified; Y92.481 Parking lot as the place of occurrence of the external cause; Y99.9 Unspecified external cause status
CPT/HCPCS: 12001; 99283

== ENCOUNTER 2019-04-23 05:52 | Emergency (ER) | payer MEDICAID ==
[~2019-04-23] VITALS: Ht 160 cm; Wt 58.6 kg
[~2019-04-23 05:52] MED LIST changes: +HYDR-4353 PO
[2019-04-23 05:54] VITALS: BP 132/89
[2019-04-23 06:23] LABS: CLARITY,URINE CLOUDY (Clear); COLOR,URINE YELLOW (Yellow); GLUCOSE, URINE NEGATIVE (Neg); KETONES,URINE NEGATIVE (Neg); LEUKOCYTE ESTERASE ,URINE LARGE (Neg); OCCULT BLOOD,URINE LARGE (Neg); PH,URINE 6.5 (4.8-8.0); PROTEIN,URINE 30 mg/dl (Neg); UA COLLECTION TYPE CLN CATCH MIDSTREAM; UROBILINOGEN,URINE 0.2 E.U/dL (0.2-1.0)
[2019-04-23 06:25] LABS: NITRITES, URINE NEGATIVE (Neg)
[2019-04-23] MEDS ORDERED: azithromycin 250mg tablet PO ONE (06:25)
[2019-04-23] MEDS ORDERED: CefTRIAXone 1000mg IM Kit (w/lidocaine diluent) IM ONE (06:25)
[2019-04-23 06:29] LABS: BACTERIA,URINE 2+ /HPF (Neg); HYALINE CASTS 0-3 /LPF (NEGATIVE); MUCUS STRANDS NONE SEEN /LPF (Neg); RBC,URINE 50-100 /HPF (0-2); SQUAMOUS EPITHELIAL CELL,UR FEW /LPF (FEW); WBC,URINE TNTC /HPF (0-4)
--- NOTE | 2019-04-23 06:41 | NUR ---
Assumed care of patient. Patient sitting in bed. Medicated, awaiting lab results.
[2019-04-23] MEDS ORDERED: CEPH500C5 PO (06:46)
[2019-04-23] MEDS ORDERED: ondansetron 4mg rapidly disintigrating tab PO ONE (06:50)
[2019-04-23 09:30] LABS: URINE HCG NEGATIVE (NEG)
== END 2019-04-23 07:00 | disposition home or self-care (01) ==
LOC: ER 05:52
DX: N39.0 Urinary tract infection, site not specified (principal); M79.7 Fibromyalgia; F15.90 Other stimulant use, unspecified, uncomplicated; Z59.0 Homelessness; Z56.0 Unemployment, unspecified; Z88.6 Allergy status to analgesic agent
CPT/HCPCS: 36415; 81001; 81025; 87077; 87088; 87186; 87491; 87591; 96372; 99283; J0696

== ENCOUNTER 2019-06-18 02:11 | Emergency (ER) | payer MEDICAID ==
[~2019-06-18] VITALS: Ht 160 cm; Wt 61.0 kg
[~2019-06-18 02:11] MED LIST changes: +BUPR-72 PO; -BUPR-84 PO; -HYDR-4353 PO
[2019-06-18 02:14] VITALS: BP 128/84
[2019-06-18 02:39] LABS: URINE HCG NEGATIVE (NEG)
[2019-06-18 02:43] LABS: CLARITY,URINE SLIGHTLY CLOUDY (Clear); COLOR,URINE YELLOW (Yellow); GLUCOSE, URINE NEGATIVE (Neg); KETONES,URINE NEGATIVE (Neg); LEUKOCYTE ESTERASE ,URINE LARGE (Neg); NITRITES, URINE NEGATIVE (Neg); OCCULT BLOOD,URINE TRACE-INTACT (Neg); PROTEIN,URINE NEGATIVE (Neg); UA COLLECTION TYPE CLN CATCH MIDSTREAM; UROBILINOGEN,URINE 0.2 E.U/dL (0.2-1.0)
[2019-06-18] MEDS ORDERED: azithromycin 250mg tablet PO ONE (02:55)
[2019-06-18] MEDS ORDERED: metroNIDAZOLE 500mg tablet PO ONE (02:55)
[2019-06-18] MEDS ORDERED: CefTRIAXone 250MG inj IM ONE (02:55)
[2019-06-18 03:09] LABS: BACTERIA,URINE FEW /HPF (Neg); RBC,URINE 0-2 /HPF (0-2); SQUAMOUS EPITHELIAL CELL,UR MANY /LPF (FEW)
[2019-06-18 03:10] LABS: TRICHOMONAS,URINE MOD /HPF (NEGATIVE)
[2019-06-18] MEDS ORDERED: CefTRIAXone 250MG IM Kit w/LIDOcaine IM ONE (03:20)
== END 2019-06-18 03:57 | disposition home or self-care (01) ==
LOC: ER 02:11
DX: A64 Unspecified sexually transmitted disease (principal); M79.7 Fibromyalgia; F32.9 Major depressive disorder, single episode, unspecified; F15.90 Other stimulant use, unspecified, uncomplicated; Z88.6 Allergy status to analgesic agent; Z79.899 Other long term (current) drug therapy; Z87.442 Personal history of urinary calculi; Z87.19 Personal history of other diseases of the digestive system; Z56.0 Unemployment, unspecified; Z59.0 Homelessness
CPT/HCPCS: 81001; 81025; 96372; 99283; J0696; J3490

== ENCOUNTER 2020-03-03 12:26 | Emergency (ER) | payer MEDICAID ==
[~2020-03-03] VITALS: Ht 160 cm; Wt 72.0 kg
[2020-03-03 12:31] VITALS: BP 129/79
--- NOTE | 2020-03-03 17:56 | NUR ---
Patient was not in lobby x3. Called patients listed number and left a voice mail. Dr hart aware.
== END 2020-03-03 18:28 | disposition left against medical advice (07) ==
LOC: ER 12:27
DX: O26.91 Pregnancy related conditions, unspecified, first trimester (principal); Z3A.01 Less than 8 weeks gestation of pregnancy; Z53.21 Procedure and treatment not carried out due to patient leaving prior to being seen by health care provider

== ENCOUNTER 2020-06-16 20:12 | Emergency (ER) | payer MEDICAID ==
[~2020-06-16] VITALS: Ht 160 cm; Wt 68.2 kg
[2020-06-16 20:42] LABS: URINE HCG NEGATIVE (NEG)
[2020-06-16 20:44] LABS: CLARITY,URINE CLEAR (Clear); COLOR,URINE YELLOW (Yellow); GLUCOSE, URINE NEGATIVE (Neg); KETONES,URINE NEGATIVE (Neg); LEUKOCYTE ESTERASE ,URINE NEGATIVE (Neg); NITRITES, URINE NEGATIVE (Neg); OCCULT BLOOD,URINE NEGATIVE (Neg); PH,URINE 6.5 (4.8-8.0); PROTEIN,URINE NEGATIVE (Neg); UROBILINOGEN,URINE 0.2 E.U/dL (0.2-1.0)
[2020-06-16 20:45] LABS: UA COLLECTION TYPE CLN CATCH MIDSTREAM
[2020-06-16 20:57] LABS: BASOPHILS # (AUTO) 0.1 X10'3 (0-0.2); BASOPHILS % (AUTO) 0.9 % (0-1); EOSINOPHILS # (AUTO) 0.1 X10'3 (0-0.9); EOSINOPHILS % (AUTO) 1.5 % (0-6); HEMATOCRIT 24.3 % (35.0-45.0); HEMOGLOBIN 7.3 g/dl (12.0-16.0); LYMPHOCYTES # (AUTO) 2.5 X10'3 (1.1-4.8); LYMPHOCYTES % (AUTO) 38.6 % (21-51); MEAN CORPUSCULAR HEMOGLOBIN 20.3 PG (27.0-31.0); MEAN CORPUSCULAR HGB CONC 30.2 g/dL (33.0-36.5); MEAN CORPUSCULAR VOLUME 67.2 FL (78-98); MEAN PLATELET VOLUME 7.3 FL (7.4-10.4); MONOCYTES # (AUTO) 0.5 X10'3 (0-0.9); MONOCYTES % (AUTO) 7.6 % (2-12); NEUTROPHILS # (AUTO) 3.4 X10'3 (1.8-7.7); NEUTROPHILS % (AUTO) 51.4 % (42-75); PLATELET COUNT 348 X10'3 (140-440); RED BLOOD COUNT 3.62 X10'6 (4.20-5.60); RED CELL DISTRIBUTION WIDTH 17.9 % (11.5-14.5); WHITE BLOOD COUNT 6.6 X10'3 (4.5-11.0)
[2020-06-16 20:57] LABS: URINE AMPHETAMINE SCREEN NEGATIVE (Neg); URINE BARBITUATE SCREEN NEGATIVE (Neg); URINE BENZODIAZEPINES SCREEN NEGATIVE (Neg); URINE CANNABINOID SCREEN NEGATIVE (Neg); URINE COCAINE SCREEN NEGATIVE (Neg); URINE METHADONE SCREEN NEGATIVE (Neg); URINE OPIATE SCREEN NEGATIVE (Neg); URINE PHENCYCLIDINE SCREEN NEGATIVE (Neg)
[2020-06-16 21:11] LABS: ALANINE AMINOTRANSFERASE 25 U/L (12-78); ALBUMIN 3.6 G/DL (3.4-5.0); ALBUMIN/GLOBULIN RATIO 0.9 (1.1-1.5); ALKALINE PHOSPHATASE 68 IU/L (46-116); ANION GAP 9 (8-16); ASPARTATE AMINO TRANSFERASE 17 U/L (10-37); BILIRUBIN,TOTAL 0.2 MG/DL (0.1-1.0); BLOOD UREA NITROGEN 12 MG/DL (7-18); BUN/CREATININE RATIO 14.5 (6.6-38.0); CALCIUM 8.4 MG/DL (8.5-10.1); CHLORIDE 104 MMOL/L (99-107); CREATININE 0.83 MG/DL (0.40-0.90); GLUCOSE 97 MG/DL (70-104); POTASSIUM 3.6 MMOL/L (3.5-5.1); SODIUM 141 MMOL/L (135-145); TOTAL CARBON DIOXIDE 28.4 MMOL/L (24-32); TOTAL PROTEIN 7.7 G/DL (6.4-8.2); eGFR 80 ML/MIN
[2020-06-16] MEDS ORDERED: ibuprofen 200mg tablet PO ONE (21:40)
[2020-06-16] MEDS ORDERED: acetaminophen 325mg tablet PO ONE (21:40)
[2020-06-16] MEDS ORDERED: ibuprofen tablet 400 MG TABLET PO ONE (21:40)
[2020-06-16] MEDS ORDERED: NORG1TAB13 PO (22:21)
[2020-06-17] VITALS (10 sets, daily range): BP systolic 93–111; BP diastolic 61–78
--- NOTE | 2020-06-17 01:00 | NUR ---
pt resting cvomfortably, recieving first unit of blood, tolerating well
[2020-06-17 05:13] LABS: HEMATOCRIT 30.6 % (35.0-45.0); HEMOGLOBIN 9.6 g/dl (12.0-16.0); MEAN CORPUSCULAR HEMOGLOBIN 23.1 PG (27.0-31.0); MEAN CORPUSCULAR HGB CONC 31.5 g/dL (33.0-36.5); MEAN CORPUSCULAR VOLUME 73.4 FL (78-98); MEAN PLATELET VOLUME 7.3 FL (7.4-10.4); PLATELET COUNT 300 X10'3 (140-440); RED BLOOD COUNT 4.16 X10'6 (4.20-5.60); RED CELL DISTRIBUTION WIDTH 22.5 % (11.5-14.5); WHITE BLOOD COUNT 5.1 X10'3 (4.5-11.0)
== END 2020-06-17 06:22 | disposition home or self-care (01) ==
LOC: ER 20:13
DX: N93.9 Abnormal uterine and vaginal bleeding, unspecified (principal); D64.89 Other specified anemias; F32.9 Major depressive disorder, single episode, unspecified; F15.90 Other stimulant use, unspecified, uncomplicated; Z87.442 Personal history of urinary calculi; Z72.89 Other problems related to lifestyle; Z56.0 Unemployment, unspecified; Z59.0 Homelessness; Z88.8 Allergy status to other drugs, medicaments and biological substances; Z79.899 Other long term (current) drug therapy
CPT/HCPCS: 36415; 36430; 76856; 80053; 80305; 81003; 81025; 85025; 85027; 86885; 86900; 86901; 86920; 93976; 99291; 99292; P9016

== ENCOUNTER 2020-08-27 11:55 | Emergency (ER) | payer MEDICAID ==
[~2020-08-27] VITALS: Ht 160 cm; Wt 63.6 kg
[~2020-08-27 11:55] MED LIST changes: +NORG1TAB13 PO
[2020-08-27 12:08] VITALS: BP 132/87
--- NOTE | 2020-08-27 13:23 | NUR ---
Provider at bedside
[2020-08-27 13:40] LABS: BASOPHILS % (AUTO) 0.3 % (0-1); EOSINOPHILS # (AUTO) 0.2 X10'3 (0-0.9); EOSINOPHILS % (AUTO) 3.1 % (0-6); HEMATOCRIT 32.4 % (35.0-45.0); HEMOGLOBIN 10.1 g/dl (12.0-16.0); MEAN CORPUSCULAR HEMOGLOBIN 24.1 PG (27.0-31.0); MEAN CORPUSCULAR HGB CONC 31.3 g/dL (33.0-36.5); MEAN CORPUSCULAR VOLUME 77.2 FL (78-98); MEAN PLATELET VOLUME 8.2 FL (7.4-10.4); MONOCYTES # (AUTO) 0.4 X10'3 (0-0.9); MONOCYTES % (AUTO) 8.1 % (2-12); NEUTROPHILS # (AUTO) 2.9 X10'3 (1.8-7.7); NEUTROPHILS % (AUTO) 52.5 % (42-75); PLATELET COUNT 220 X10'3 (140-440); RED CELL DISTRIBUTION WIDTH 25.9 % (11.5-14.5); WHITE BLOOD COUNT 5.5 X10'3 (4.5-11.0)
[2020-08-27 13:49] LABS: ALANINE AMINOTRANSFERASE 124 U/L (12-78); ALBUMIN 3.2 G/DL (3.4-5.0); ALBUMIN/GLOBULIN RATIO 0.9 (1.1-1.5); ALKALINE PHOSPHATASE 65 IU/L (46-116); ANION GAP 8 (8-16); ASPARTATE AMINO TRANSFERASE 36 U/L (10-37); BILIRUBIN,TOTAL 0.2 MG/DL (0.1-1.0); BLOOD UREA NITROGEN 10 MG/DL (7-18); BUN/CREATININE RATIO 14.3 (6.6-38.0); CALCIUM 8.3 MG/DL (8.5-10.1); CHLORIDE 106 MMOL/L (99-107); GLUCOSE 102 MG/DL (70-104); POTASSIUM 4.2 MMOL/L (3.5-5.1); SODIUM 143 MMOL/L (135-145); TOTAL CARBON DIOXIDE 29.1 MMOL/L (24-32); TOTAL PROTEIN 6.6 G/DL (6.4-8.2); eGFR > 90 ML/MIN
[2020-08-27 14:00] LABS: URINE HCG NEGATIVE (NEG)
[2020-08-27 14:02] LABS: CLARITY,URINE CLEAR (Clear); COLOR,URINE STRAW (Yellow); GLUCOSE, URINE NEGATIVE (Neg); KETONES,URINE NEGATIVE (Neg); LEUKOCYTE ESTERASE ,URINE NEGATIVE (Neg); NITRITES, URINE NEGATIVE (Neg); OCCULT BLOOD,URINE SMALL (Neg); PH,URINE 7.5 (4.8-8.0); PROTEIN,URINE NEGATIVE (Neg); UA COLLECTION TYPE CLN CATCH MIDSTREAM; UROBILINOGEN,URINE 0.2 E.U/dL (0.2-1.0)
[2020-08-27 14:07] LABS: BACTERIA,URINE FEW /HPF (Neg); MUCUS STRANDS NONE SEEN /LPF (Neg); RBC,URINE 0-2 /HPF (0-2); SQUAMOUS EPITHELIAL CELL,UR FEW /LPF (FEW); WBC,URINE 0-4 /HPF (0-4)
[2020-08-27 14:14] LABS: ANISOCYTOSIS 3+; HYPOCHROMASIA 1+; MICROCYTOSIS 1+; PLATELET ESTIMATE NORMAL
== END 2020-08-27 15:33 | disposition home or self-care (01) ==
LOC: ER 11:56
DX: D64.9 Anemia, unspecified (principal); R53.1 Weakness; R10.84 Generalized abdominal pain; F32.9 Major depressive disorder, single episode, unspecified; F15.90 Other stimulant use, unspecified, uncomplicated; Z87.442 Personal history of urinary calculi; Z98.890 Other specified postprocedural states; Z72.89 Other problems related to lifestyle; Z56.0 Unemployment, unspecified; Z59.0 Homelessness; Z88.8 Allergy status to other drugs, medicaments and biological substances; Z79.899 Other long term (current) drug therapy
CPT/HCPCS: 36415; 80053; 81001; 81025; 85008; 85025; 99283

== ENCOUNTER 2021-02-07 09:49 | Emergency (ER) | payer MEDICAID ==
[~2021-02-07] VITALS: Ht 160 cm; Wt 56.8 kg
[2021-02-07] MEDS ORDERED: normal saline 1000ml 1,000 ML IV ONE (10:25)
[2021-02-07] MEDS ORDERED: ACETYLCYSTEINE IV ONE ×3 (10:30→16:00)
[2021-02-07] MEDS ORDERED: DEXTROSE 5% IV ONE ×3 (10:30→16:00)
[2021-02-07] MEDS ORDERED: WATER IV ONE ×3 (10:30→16:00)
[2021-02-07 11:15] LABS: BASOPHILS % (AUTO) 0.2 % (0-1); EOSINOPHILS % (AUTO) 0.1 % (0-6); HEMATOCRIT 39.6 % (35.0-45.0); HEMOGLOBIN 12.8 g/dl (12.0-16.0); LYMPHOCYTES # (AUTO) 0.5 X10'3 (1.1-4.8); LYMPHOCYTES % (AUTO) 9.8 % (21-51); MEAN CORPUSCULAR HEMOGLOBIN 25.5 PG (27.0-31.0); MEAN CORPUSCULAR HGB CONC 32.2 g/dL (33.0-36.5); MEAN CORPUSCULAR VOLUME 79.1 FL (78-98); MEAN PLATELET VOLUME 8.5 FL (7.4-10.4); MONOCYTES # (AUTO) 0.1 X10'3 (0-0.9); MONOCYTES % (AUTO) 1.5 % (2-12); NEUTROPHILS # (AUTO) 4.1 X10'3 (1.8-7.7); NEUTROPHILS % (AUTO) 88.4 % (42-75); PLATELET COUNT 104 X10'3 (140-440); WHITE BLOOD COUNT 4.7 X10'3 (4.5-11.0)
[2021-02-07 11:28] LABS: ACETAMINOPHEN 2.7 UG/ML (10-30); ALBUMIN/GLOBULIN RATIO 0.9 (1.1-1.5); ALKALINE PHOSPHATASE 183 IU/L (46-116); ANION GAP 7 (8-16); BILIRUBIN,TOTAL 1.5 MG/DL (0.1-1.0); BLOOD UREA NITROGEN 33 MG/DL (7-18); BUN/CREATININE RATIO 19.1 (6.6-38.0); CALCIUM 7.5 MG/DL (8.5-10.1); CHLORIDE 98 MMOL/L (99-107); CREATININE 1.73 MG/DL (0.40-0.90); GLUCOSE 177 MG/DL (70-104); POTASSIUM 4.8 MMOL/L (3.5-5.1); SODIUM 132 MMOL/L (135-145); TOTAL CARBON DIOXIDE 27.3 MMOL/L (24-32); TOTAL PROTEIN 6.3 G/DL (6.4-8.2); eGFR 34 ML/MIN
[2021-02-07 11:50] LABS: ETHANOL < 0.010 GM/DL (0.0-0.010)
[2021-02-07 13:34] LABS: ASPARTATE AMINO TRANSFERASE > 7000 U/L (10-37)
[2021-02-07 13:35] LABS: ALANINE AMINOTRANSFERASE > 7000 U/L (12-78)
[2021-02-07 14:01] VITALS: BP 158/93
[2021-02-07 14:28] LABS: ACETAMINOPHEN < 2.0 UG/ML (10-30); ALBUMIN 2.9 G/DL (3.4-5.0); ALBUMIN/GLOBULIN RATIO 0.7 (1.1-1.5); ALKALINE PHOSPHATASE 184 IU/L (46-116); ANION GAP 13 (8-16); BILIRUBIN,TOTAL 1.4 MG/DL (0.1-1.0); BLOOD UREA NITROGEN 33 MG/DL (7-18); BUN/CREATININE RATIO 19.8 (6.6-38.0); CALCIUM 7.7 MG/DL (8.5-10.1); CHLORIDE 97 MMOL/L (99-107); CREATININE 1.67 MG/DL (0.40-0.90); GLUCOSE 83 MG/DL (70-104); POTASSIUM 4.4 MMOL/L (3.5-5.1); SODIUM 134 MMOL/L (135-145); TOTAL CARBON DIOXIDE 24.5 MMOL/L (24-32); TOTAL PROTEIN 6.8 G/DL (6.4-8.2); eGFR 35 ML/MIN
[2021-02-07 14:54] LABS: ALANINE AMINOTRANSFERASE > 7000 U/L (12-78); ASPARTATE AMINO TRANSFERASE > 7000 U/L (10-37)
--- NOTE | 2021-02-07 15:03 | NUR ---
GAVE REPORT TO [facility]. ETA 1.5 HOURS... THEY REQUEST US TO SEND LAST BAG OF MEDICATION WITH THEM SO, THERE IS NO INTERUPTION IN HER MED THERAPY.
--- NOTE | 2021-02-07 17:10 | NUR ---
[facility] PRESENT.... 3RD BAG OF MEDICATION GIVEN TO THE FLIGHT CREW SO THEY CAN HANG IT IF THEY NEED TO DURING THE FLIGHT.
== END 2021-02-07 17:00 | disposition short-term general hospital (02) ==
LOC: ER 09:50
DX: U07.1 COVID-19 (principal); T39.1X1A Poisoning by 4-Aminophenol derivatives, accidental (unintentional), initial encounter; K72.00 Acute and subacute hepatic failure without coma; R10.11 Right upper quadrant pain; F32.9 Major depressive disorder, single episode, unspecified; F15.90 Other stimulant use, unspecified, uncomplicated; Z87.442 Personal history of urinary calculi; Z98.890 Other specified postprocedural states; Z72.89 Other problems related to lifestyle; Z56.0 Unemployment, unspecified; Z59.0 Homelessness; Z88.8 Allergy status to other drugs, medicaments and biological substances; Z79.899 Other long term (current) drug therapy; Y92.89 Other specified places as the place of occurrence of the external cause
CPT/HCPCS: 36415; 70450; 71045; 80053; 80320; 80329; 82140; 83605; 85025; 85610; 87635; 93005; 96365; 96366; 99291; 99292; C9803; J0132; J7030; J7060

== ENCOUNTER 2021-03-10 09:43 | Emergency (ER) | payer MEDICAID ==
[~2021-03-10] VITALS: Ht 160 cm; Wt 59.1 kg
[2021-03-10 11:21] LABS: CLARITY,URINE CLOUDY (Clear); COLOR,URINE YELLOW (Yellow); GLUCOSE, URINE NEGATIVE (Neg); KETONES,URINE NEGATIVE (Neg); NITRITES, URINE NEGATIVE (Neg); OCCULT BLOOD,URINE NEGATIVE (Neg); PROTEIN,URINE NEGATIVE (Neg); UA COLLECTION TYPE CLN CATCH MIDSTREAM; URINE HCG NEGATIVE (NEG)
[2021-03-10 11:23] LABS: LEUKOCYTE ESTERASE ,URINE NEGATIVE (Neg); UROBILINOGEN,URINE 0.2 E.U/dL (0.2-1.0)
[2021-03-10 11:30] LABS: BACTERIA,URINE 2+ /HPF (Neg); RBC,URINE 0-2 /HPF (0-2); SQUAMOUS EPITHELIAL CELL,UR FEW /LPF (FEW); WBC,URINE 0-4 /HPF (0-4)
[2021-03-10 13:09] VITALS: BP 120/72
[2021-03-10] MEDS ORDERED: ibuprofen tablet 400 MG TABLET PO ONE (13:10)
[2021-03-10] MEDS ORDERED: ibuprofen 200mg tablet PO ONE (13:15)
== END 2021-03-10 13:23 | disposition home or self-care (01) ==
LOC: ER 09:43
DX: N92.6 Irregular menstruation, unspecified (principal); R10.30 Lower abdominal pain, unspecified; F32.9 Major depressive disorder, single episode, unspecified; F15.90 Other stimulant use, unspecified, uncomplicated; Z87.442 Personal history of urinary calculi; Z98.890 Other specified postprocedural states; Z72.89 Other problems related to lifestyle; Z56.0 Unemployment, unspecified; Z59.00 Homelessness unspecified; Z88.8 Allergy status to other drugs, medicaments and biological substances; Z79.899 Other long term (current) drug therapy
CPT/HCPCS: 81001; 81025; 99283